=== PATIENT | female | born 1990 | race Caucasian/White ===

== ENCOUNTER → 2016-11-24 | Outpatient (CLI) | payer MEDICAID ==
[~2016-11-24] MED LIST: ACET500T PO; ADVI200T PO; ANUS2.5C2 PR; APRITAB PO; COLA50CA3 PO; MOM30SS PO; PRENTAB74 PO
== END ==
LOC: M OUTALCOH 13:15
PROVIDERS: ATTEND Psychiatry & Neurology Psychiatry
DX: F11.20 Opioid dependence, uncomplicated (principal); F15.20 Other stimulant dependence, uncomplicated

== ENCOUNTER 2016-12-18 13:00 | Outpatient (RCR) | payer OTHER | END 2016-12-26 | LOC: M OUTALCOH 13:00 | PROVIDERS: ATTEND Psychiatry & Neurology Psychiatry | DX: F11.20 Opioid dependence, uncomplicated (principal); F15.20 Other stimulant dependence, uncomplicated; Z72.0 Tobacco use ==

== ENCOUNTER → 2021-10-14 | Outpatient (REF) | payer OTHER | LOC: M LAB REF 11:20 | PROVIDERS: ATTEND Physician Assistant Medical | DX: J20.9 Acute bronchitis, unspecified (principal) ==

== ENCOUNTER → 2022-10-27 | Outpatient (CLI) | payer OTHER ==
[~2022-10-27] MED LIST changes: +AMPHET/DEXTR PO; +BUPR2SUB SL; +GABA600T4 PO
== END ==
LOC: M LABSMTC 10:34
PROVIDERS: ATTEND Anesthesiology
DX: Z01.812 Encounter for preprocedural laboratory examination (principal); Z11.52 Encounter for screening for COVID-19

== ENCOUNTER → 2023-07-07 | Outpatient (CLI) | payer OTHER ==
[2023-07-07 14:27] LABS: HEMATOCRIT 33.5 % (36.0-47.0); HEMOGLOBIN 10.3 g/dl (12.0-15.5); MEAN CORPUSCULAR HEMOGLOBIN 28.1 pg (27.0-33.0); MEAN CORPUSCULAR HGB CONC 30.7 g/dl (32.0-36.5); MEAN CORPUSCULAR VOLUME 91.3 fl (80.0-96.0); PLATELET COUNT, AUTOMATED 333 10^3/uL (150-450); RED BLOOD COUNT 3.67 10^6/uL (4.00-5.40); WHITE BLOOD COUNT 8.1 10^3/uL (4.0-10.0)
[2023-07-07 15:00] LABS: HIV 1&2 SCREEN NEGATIVE (NEGATIVE)
[2023-07-07 16:13] LABS: HEPATITIS C VIRUS ABY INDEX > 11.00 INDEX (<0.8)
[2023-07-07 23:20] LABS: GC DNA AMPLIFICATION NEGATIVE (NEGATIVE)
== END ==
LOC: M PLALAB 10:24
PROVIDERS: ATTEND Specialist
DX: Z34.83 Encounter for supervision of other normal pregnancy, third trimester (principal); Z3A.00 Weeks of gestation of pregnancy not specified

== ENCOUNTER → 2023-12-24 | Outpatient (REF) | payer OTHER ==
[~2023-12-24] MED LIST changes: +GABA-284 PO; +PRENTAB9 PO
[2023-12-24 21:32] LABS: APPEARANCE, URINE HAZY (CLEAR); BACTERIA, URINE AUTO 1+ (NEGATIVE); BILIRUBIN, URINE AUTO NEGATIVE (NEGATIVE); BLOOD, URINE BLOOD 1+ (NEGATIVE); COLOR, URINE AMBER (YELLOW); GLUCOSE, URINE (UA) AUTO NEGATIVE (NEGATIVE); KETONE, URINE AUTO NEGATIVE (NEGATIVE); LEUKOCYTE ESTERASE, URINE AUTO NEGATIVE (NEGATIVE); MUCUS, URINE SMALL (NEGATIVE); NITRITE, URINE AUTO POSITIVE (NEGATIVE); PROTEIN, URINE AUTO 1+ mg/dL (NEGATIVE); RBC, URINE AUTO 6 /HPF (0-3); SPECIFIC GRAVITY URINE AUTO 1.027 (1.002-1.035); SQUAMOUS EPITHELIAL CELL UR AU 3 /HPF (0-6); UROBILINOGEN, URINE AUTO 0.2 mg/dL (0.0-2.0); WBC, URINE AUTO 6 /HPF (0-3)
== END ==
LOC: M LAB REF 21:02
PROVIDERS: ATTEND Physician Assistant
DX: R05.9 Cough, unspecified (principal)

== ENCOUNTER → 2025-05-04 | Outpatient (REF) | payer OTHER ==
[~2025-05-04] MED LIST changes: +GABA-1490 PO; -GABA600T4 PO
[2025-05-04 17:33] LABS: APPEARANCE, URINE CLOUDY (CLEAR); BACTERIA, URINE AUTO NEGATIVE (NEGATIVE); BILIRUBIN, URINE AUTO NEGATIVE (NEGATIVE); BLOOD, URINE BLOOD 3+ (NEGATIVE); GLUCOSE, URINE (UA) AUTO NEGATIVE (NEGATIVE); KETONE, URINE AUTO NEGATIVE (NEGATIVE); LEUKOCYTE ESTERASE, URINE AUTO 3+ (NEGATIVE); MUCUS, URINE SMALL (NEGATIVE); NITRITE, URINE AUTO POSITIVE (NEGATIVE); PROTEIN, URINE AUTO 3+ mg/dL (NEGATIVE); RBC, URINE AUTO TNTC /HPF (0-3); SPECIFIC GRAVITY URINE AUTO 1.022 (1.002-1.035); SQUAMOUS EPITHELIAL CELL UR AU 3 /HPF (0-6); UROBILINOGEN, URINE AUTO 0.2 mg/dL (0.0-2.0); WBC, URINE AUTO TNTC /HPF (0-3)
== END ==
LOC: M LAB REF 16:59
PROVIDERS: ATTEND Physician Assistant Medical
DX: N39.0 Urinary tract infection, site not specified (principal)

== ENCOUNTER → 2025-09-12 | Outpatient (CLI) | payer MEDICAID, OTHER | LOC: M OUTALCOH 08:33 | PROVIDERS: ATTEND Psychiatry & Neurology Psychiatry | DX: F15.20 Other stimulant dependence, uncomplicated (principal); F14.10 Cocaine abuse, uncomplicated; F11.20 Opioid dependence, uncomplicated; Z72.0 Tobacco use ==

== ENCOUNTER 2025-09-26 16:00 | Outpatient (RCR) | payer MEDICAID, OTHER | END 2025-09-27 | LOC: M OUTALCOH 16:00 | PROVIDERS: ATTEND Psychiatry & Neurology Psychiatry | DX: F15.20 Other stimulant dependence, uncomplicated (principal); F14.10 Cocaine abuse, uncomplicated; F11.20 Opioid dependence, uncomplicated; Z72.0 Tobacco use ==